=== PATIENT | male | born 1995 | race Caucasian/White ===

== ENCOUNTER 2021-08-28 21:53 | Emergency (ER) | payer OTHER ==
[~2021-08-28] VITALS: Ht 190.5 cm; Wt 95.4 kg
[2021-08-29] MEDS ORDERED: METHOCARBAMOL 1,000 MG/10 ML VIAL (J2800) IV ONE (01:05)
[2021-08-29] MEDS ORDERED: KETOROLAC 30 MG/ML 1ML VIAL IV ONE (01:05)
--- NOTE | 2021-08-29 01:43 | REPVR ---
PROCEDURE INFORMATION: Exam: CT Lumbar Spine Without Contrast Exam date and time: 08/28/2021 11:29 PM Age: 26 years old Clinical indication: Injury or trauma; Fall; Blunt trauma (contusions or hematomas); Injury details: Fell 7ft landed on feet TECHNIQUE: Imaging protocol: Computed tomography images of the lumbar spine without contrast. Radiation optimization: All CT scans at this facility use at least one of these dose optimization techniques: automated exposure control; mA and/or kV adjustment per patient size (includes targeted exams where dose is matched to clinical indication); or iterative reconstruction. COMPARISON: No relevant prior studies available. FINDINGS: Vertebrae: Lumbar lordosis is preserved. Vertebral body heights are maintained. No acute lumbar spine fracture. No measurable spondylolisthesis. Discs/Spinal canal/Neural foramina: Disc space heights are intact. No significant spinal stenosis. Soft tissues: Unremarkable. IMPRESSION: No acute findings in the lumbar spine. Electronically signed by: Jt Mcclendon On 08/29/2021 01:42:43 AM
--- NOTE | 2021-08-29 01:44 | REPVR ---
PROCEDURE INFORMATION: Exam: XR Right Knee Exam date and time: 08/28/2021 11:16 PM Age: 26 years old Clinical indication: Other: Trauma TECHNIQUE: Imaging protocol: XR Right knee. Views: 4 or more views. COMPARISON: No relevant prior studies available. FINDINGS: Bones/joints: No acute fracture or dislocation. Joint spaces are unremarkable. Soft tissues: Unremarkable. IMPRESSION: No acute findings. Electronically signed by: Jt Mcclendon On 08/29/2021 01:43:51 AM
[2021-08-29] MEDS ORDERED: METH-1165 PO (05:13)
[2021-08-29] MEDS ORDERED: NAPR-837 PO (05:13)
[2021-08-29 06:22] VITALS: BP 119/73
== END 2021-08-29 06:23 | disposition home or self-care (01) ==
LOC: M ED 21:53
DX: M54.50 Low back pain, unspecified (principal); F17.200 Nicotine dependence, unspecified, uncomplicated
CPT/HCPCS: 72131; 73564; 96374; 96375; 99284; J1885; J2800

== ENCOUNTER 2023-10-18 07:59 | Emergency (ER) | payer OTHER ==
[~2023-10-18] VITALS: Ht 190.5 cm; Wt 94.1 kg
[~2023-10-18 07:59] MED LIST: METH-1165 PO; NAPR-837 PO
[2023-10-18] MEDS ORDERED: IBUPROFEN 600MG TAB PO ONE (08:20)
[2023-10-18 09:11] VITALS: BP 125/75; TEMP 98.7; O2SAT 96
== END 2023-10-18 09:15 | disposition home or self-care (01) ==
LOC: M ED 07:59
DX: S90.31XA Contusion of right foot, initial encounter (principal); M72.2 Plantar fascial fibromatosis; W10.8XXA Fall (on) (from) other stairs and steps, initial encounter; Y92.9 Unspecified place or not applicable